=== PATIENT | female | born 1990 | race Caucasian/White ===

== ENCOUNTER 2017-02-26 13:33 | Inpatient (IN) | payer OTHER ==
[~2017-02-26] VITALS: Ht 157.4 cm; Wt 59.4 kg
--- NOTE | ~2017-02-26 | EKG ---
[place], [place] ELECTROCARDIOGRAM REPORT NAME: CHRISTIANO SOTO UNIT #: [id number] ROOM: 403 DOCTOR: WILLARD NARVAEZ MD BIRTHDATE: [birth year] DOS: 02/26/2017 ____. RATE AND RHYTHM: Normal sinus rhythm at 77 beats per minute. DE interval 127 milliseconds, QRS duration 93 milliseconds, corrected QT interval 424 milliseconds, QRS axis is 88. IMPRESSION: Normal EKG. WILLARD NARVAEZ MD CM:EKGRPT:ELECTROCARDIOGRAM REPORT [id number] WILLARD NARVAEZ MD
[~2017-02-26 13:33] MED LIST: BACTRIM DS 8001 TA1 PO; CIPROFLOXACIN500 MG PO; FLAGYL500 MG PO; MACROBID100 M1 PO; MOTRIN800 MG PO; NKHM; PERCOCET 325 MG1 TA2 PO; PRENATAL1 TA2 PO; PYRIDIUM100 MG PO; PYRIDIUM200 MG PO; SEPTRA DS 800 M1 TAB PO; TORADOL10 MG PO; ZITHROMAX Z PA250 MG PO
[2017-02-26 13:45] VITALS: BP 140/62
[2017-02-26] MEDS ORDERED: SUBOXONE 8 MG-1 EACH SL (13:47)
[2017-02-26] MEDS ORDERED: LEVONORGESTREL PO (13:47)
[2017-02-26 14:12] LABS: BILIRUBIN NEGATIVE (NEGATIVE); BLOOD NEGATIVE (NEGATIVE); CLARITY SL CLOUDY (CLEAR); COLOR YELLOW (YELLOW); GLUCOSE NEGATIVE (NEGATIVE); KETONE NEGATIVE (NEGATIVE); LEUKO ESTERASE NEGATIVE (NEGATIVE); NITRITE POSITIVE (NEGATIVE); PROTEIN NEGATIVE (NEGATIVE); SPECIFIC GRAVITY >= 1.030 (1.005-1.030); UROBILINOGEN 0.2 E.U./dl (0.2-1.0)
[2017-02-26 14:14] LABS: URINE AMPHETAMINES < 1000 (1000ng/ml); URINE BARBITURATES < 200 (200ng/ml); URINE COCAINE > 300 (300ng/ml)
[2017-02-26 14:24] LABS: BACTERIA 3+; RBC 0-2 rbc/hpf (0-2); URINE REFLEX COMMENT YES (NO)
[2017-02-26 14:39] LABS: BASO % 0.6 % (0.0-1.0); EOS # 0.2 10*3/uL (0.0-0.4); HEMATOCRIT 40.2 % (37.0-47.0); HEMOGLOBIN 13.6 g/dl (12.0-16.0); LYMPH # 2.4 10*3/uL (1.3-4.4); LYMPH % 44.5 % (27.0-41.0); MEAN CELL VOLUME 89.7 fl (81.0-99.0); MEAN CORPUSCULAR HGB 30.4 pg (27.0-31.0); MEAN CORPUSCULAR HGB CONC 33.8 g/dl (33.0-37.0); MEAN PLATELET VOLUME 10.8 fl (9.6-12.3); MONO # 0.3 10*3/uL (0.1-1.0); MONO % 5.1 % (3.0-9.0); NEUT # 2.5 10*3/uL (2.3-7.9); NEUT % 46.6 % (47.0-73.0); PLATELET COUNT AUTOMATED 199 10*3/uL (130-400); RED BLOOD COUNT 4.48 10*6/uL (4.10-5.10); WHITE BLOOD COUNT 5.3 10*3/uL (4.8-10.8)
[2017-02-26 14:54] LABS: ALBUMIN 3.9 gm/dl (3.1-4.5); ALKALINE PHOSPHATASE 62 U/L (45-117); BILIRUBIN, TOTAL 0.3 mg/dl (0.2-1.0); BUN 8 mg/dl (7-24); CARBON DIOXIDE 25 mmol/L (21-32); CHLORIDE 107 mmol/L (98-107); EST GLOM FILT AFRICAN AMERICAN > 60 ml/min; GLUCOSE 95 mg/dL (65-99); POTASSIUM 3.7 mmol/L (3.5-5.1); SGOT/AST 18 IU/L (3-35); SGPT/ALT 24 U/L (12-78); SODIUM 140 mmol/L (136-145); TOTAL PROTEIN 7.6 gm/dL (6.4-8.2)
[2017-02-26 16:00] VITALS: BP 102/69
[2017-02-26 20:00] VITALS: BP 104/55
[2017-02-27] VITALS: BP 105/61
[2017-02-27 04:00] VITALS: BP 93/50
[2017-02-27 08:00] VITALS: BP 108/60
[2017-02-27 12:00] VITALS: BP 119/64
[2017-02-27 16:00] VITALS: BP 101/60
[2017-02-27 20:00] VITALS: BP 131/64
[2017-02-28] VITALS: BP 109/72
[2017-02-28 08:00] VITALS: BP 116/54
[2017-02-28 12:00] VITALS: BP 107/50
[2017-02-28] MEDS ORDERED: SEPTRA DS 800 M1 TAB PO (12:54)
[2017-02-28] MEDS ORDERED: ROPINIROLE HYD0.5 MG PO (12:54)
[2017-02-28] MEDS ORDERED: ZOFRAN 4 MG ED2 TAB PO (12:54)
[2017-02-28] MEDS ORDERED: ATARAX,VISTARIL50 MG PO (12:54)
[2017-02-28 16:00] VITALS: BP 113/62
[2017-02-28 20:00] VITALS: BP 116/80
[2017-03-01] VITALS: BP 100/57
[2017-03-01 08:00] VITALS: BP 106/64
== END 2017-03-01 11:06 | disposition home or self-care (01) | DRG 897 ==
LOC: ED 13:33 → 4E 14:11 → EDHOLD 14:11 → 4E 14:51
PROVIDERS: Nurse Practitioner Family
DX: F11.23 Opioid dependence with withdrawal (principal); N39.0 Urinary tract infection, site not specified; F14.10 Cocaine abuse, uncomplicated; F17.210 Nicotine dependence, cigarettes, uncomplicated; F32.9 Major depressive disorder, single episode, unspecified; F41.9 Anxiety disorder, unspecified; G25.81 Restless legs syndrome; B96.20 Unspecified Escherichia coli [E. coli] as the cause of diseases classified elsewhere; Z71.6 Tobacco abuse counseling; Z79.899 Other long term (current) drug therapy

== ENCOUNTER 2017-06-30 04:13 | Inpatient (IN) | payer OTHER ==
[2017-06-30] VITALS (12 sets, daily range): BP systolic 96–120; BP diastolic 54–84
[~2017-06-30] VITALS: Ht 157.5 cm; Wt 73.7 kg
--- NOTE | ~2017-06-30 | CON ---
[place], [place] REPORT OF CONSULTATION NAME: [facility]: [id number] UNIT #: [id number] ROOM: [place] DOCTOR: MARLEN WINSTON ED.D (BREANN) BIRTHDATE: [birth year] DOS: 06/30/2017 HISTORY OF PRESENT ILLNESS: The patient is a 26-year-old female referred by the hospitalist for an evaluation following a drug overdose. She apparently took 30 Xanax along with 30 Neurontin. At the present time, this patient is in the intensive care unit at [facility]. She states she is single and has 3 children. She does not have custody of her children, however. It was very difficult obtaining much history from the patient due to the fact that she was extremely lethargic due to her drug overdose and the fact that she had also received Geodon because she had become quite agitated. I am uncertain of her medications, but her diagnosis is history of cocaine abuse, depression, opioid dependence and tobacco abuse. This patient was awake and somewhat alert and oriented to person and place only. She did not actually answer many questions because she was so lethargic from the medications. She did not indicate whether she was attempting suicide or she was still suicidal and I will re-evaluate her tomorrow which is 07/01/2017. She is under emergency hold, so therefore, she will remain in the hospital until her overdose is clear along with and also once we determine whether or not she is suicidal. DIAGNOSES: 1. History of cocaine abuse. 2. History of opioid abuse. 3. History of depression. Thank you very much for this consult. MARLEN WINSTON ED.D CM:CONSTR:REPORT OF CONSULTATION 1626 06/30/17 2251 interface
--- NOTE | ~2017-06-30 | PR ---
[place], [place] PROGRESS NOTE NAME: CHRISTIANO SOTO [facility] #: [id number] UNIT #: [id number] ROOM: [facility] DOCTOR: CATRACHITO LE,MARLEN ALICEA) BIRTHDATE: [birth year] DOS: 07/01/2017 At present time, this patient adamantly denies any suicidal ideation or plan. She states she was angry at her mother and that is why she overdosed on medications. She states she does not want to do anything to kill herself. She states that she was recently discharged from [facility] where she was treated for substance abuse issues. She was then transferred to the intensive outpatient program at [facility] in [place], [place]. She does have a therapist there, Helena Cabrera. She states that she will not do anything to harm herself and plans to go home and then continue with outpatient treatment. Since she denies any suicidal ideation or plan, she can be discharged home once she is medically stable and continue to deny suicidal ideation or plan ASSESSMENT: 1. Bipolar 1 - mixed. 2. Borderline personality disorder. 3. Opioid abuse. 4. Cocaine abuse. RECOMMENDATIONS: The patient should continue to follow at [facility] intensive outpatient clinic in [place], [place]. Thank you very much for this consult. MARLEN WINSTON ED.D CM:PNTRANS [id number] MARLEN WINSTON ED (BOB).[place] 07/01/17 1424 interface
[~2017-06-30 04:13] MED LIST changes: +ATARAX,VISTARIL50 MG PO; +LEVONORGESTREL PO; +ROPINIROLE HYD0.5 MG PO; +SUBOXONE 8 MG-1 EACH SL; +ZOFRAN 4 MG ED2 TAB PO
--- NOTE | 2017-06-30 04:25 | NUR ---
POISON CONTROL NOTIFIED THEY RECOMMEND PATIENT GETS AN ASPIRIN, TYLENOL AND ALCOHOL LEVEL CHECKED, TO NOT GIVE ANY REVERSAL MEDICATION BECAUSE IT COULD SEND PATIENT INTO A WITHDRAWAL STATE AND TO DO SUPPORTIVE THERAPY. CONTINUE TO MONITOR PATIENT FOR DROWSINESS.
--- NOTE | 2017-06-30 04:30 | NUR ---
POISON CONTROL FAXED OVER INFORMATION ON MEDICATIONS AND REACTIONS.
[2017-06-30 04:42] LABS: BASO % 0.4 % (0.0-1.0); EOS # 0.2 10*3/uL (0.0-0.4); EOS % 2.6 % (1.0-4.0); HEMATOCRIT 41.8 % (37.0-47.0); HEMOGLOBIN 14.1 g/dl (12.0-16.0); LYMPH # 3.5 10*3/uL (1.3-4.4); LYMPH % 49.1 % (27.0-41.0); MEAN CELL VOLUME 91.3 fl (81.0-99.0); MEAN CORPUSCULAR HGB 30.8 pg (27.0-31.0); MEAN CORPUSCULAR HGB CONC 33.7 g/dl (33.0-37.0); MEAN PLATELET VOLUME 10.9 fl (9.6-12.3); MONO # 0.3 10*3/uL (0.1-1.0); NEUT # 3.1 10*3/uL (2.3-7.9); NEUT % 43.8 % (47.0-73.0); PLATELET COUNT AUTOMATED 169 10*3/uL (130-400); RED BLOOD COUNT 4.58 10*6/uL (4.10-5.10); RED CELL DISTRI WIDTH 13.7 % (0-14.5)
--- NOTE | 2017-06-30 04:57 | NUR ---
PATIENT CONTINUES TO LOSE CONSCIOUSNESS MID CONVERSATION, MARKED DROWSINESS. WILL CONTINUE TO CLOSELY MONITOR.
[2017-06-30 04:58] LABS: ACETAMINOPHEN (TYLENOL) < 2.0 ug/ml (10-30); ALBUMIN 3.6 gm/dl (3.1-4.5); ALKALINE PHOSPHATASE 81 U/L (45-117); BUN 10 mg/dl (7-24); CHLORIDE 106 mmol/L (98-107); CREATININE 0.81 mg/dL (0.55-1.02); POTASSIUM 3.5 mmol/L (3.5-5.1); SGOT/AST 17 IU/L (3-35); SGPT/ALT 16 U/L (12-78); SODIUM 139 mmol/L (136-145); TOTAL PROTEIN 7.5 gm/dL (6.4-8.2)
[2017-06-30 05:06] LABS: ETHYL ALCOHOL < 3.0 mg/dl (<3)
--- NOTE | 2017-06-30 05:09 | NUR ---
DR LOREDO SPOKE WITH PT. PT IS REQUESTING MORE XANAX. DR INFORMED PT SHE COULD NOT HAVE ANYMORE XANAX
[2017-06-30 05:22] LABS: BILIRUBIN NEGATIVE (NEGATIVE); BLOOD NEGATIVE (NEGATIVE); CLARITY SL CLOUDY (CLEAR); COLOR YELLOW (YELLOW); GLUCOSE NEGATIVE (NEGATIVE); KETONE NEGATIVE (NEGATIVE); LEUKO ESTERASE 1+ (NEGATIVE); NITRITE NEGATIVE (NEGATIVE); PH 6.5 (5.0-9.0); UROBILINOGEN 0.2 E.U./dl (0.2-1.0)
--- NOTE | 2017-06-30 05:23 | NUR ---
PT KEEPS BECOMING INCREASINGLY MORE "SLEEPY" OR LETHARGIC. DR LOREDO MADE AWARE. VSS. 100% O2 RA
[2017-06-30 05:31] LABS: URINE AMPHETAMINES < 1000 (1000ng/ml); URINE BARBITURATES < 200 (200ng/ml); URINE BENZODIAZEPINES > 200 (200ng/ml); URINE CANNABINOIDS (THC) < 50 (50ng/ml); URINE COCAINE < 300 (300ng/ml); URINE METHADONE < 300 (300ng/ml); URINE OPIATES < 300 (300ng/ml)
[2017-06-30 05:35] LABS: URINE PHENCYCLIDINE < 25 (25ng/ml)
[2017-06-30 05:37] LABS: EPITHELIAL CELLS 45-50
[2017-06-30 05:38] LABS: BACTERIA TRACE
--- NOTE | 2017-06-30 06:01 | NUR ---
PATIENT MARKED DROWSINESS, PATIENT OPENED EYES TO PAINFUL STIMULI, WORDS INCOMPREHENSIBLE AND SLURRED. DR. FACUNDO SANDOVAL.
--- NOTE | 2017-06-30 06:20 | NUR ---
A 26, admitted to ICCU, under the services of VERNON Jacobsen DO with a diagnosis of DRUG OVERDOSE, INTENTIONAL. Chief complaint is ANXIETY, TOOK XANAX AND NEURONTIN. Patient arrived via stretcher from ER. Monitor applied. Initial assessment completed. Vital signs taken and recorded. VERNON JACOBSEN DO notified of admission to the unit. Orders received. See assessment for past medical history, medications and allergies. Patient and/or family oriented to unit. [facility] visitation policy reviewed. Clothing/patient valuable form completed. ROBY NÚÑEZ
--- NOTE | 2017-06-30 06:26 | NUR ---
POISON CONTROL GIVEN UPDATE ON PATIENT.
--- NOTE | 2017-06-30 06:35 | NUR ---
UNABLE TO CONFIRM HOME MEDICATIONS AT THIS TIME, PT. IS DIFFICULT TO AROUSE AND FALLING BACK TO SLEEP AND SLURRING WORDS. RADHA REEVES RN
--- NOTE | 2017-06-30 07:51 | NUR ---
24 HR chart check completed.
--- NOTE | 2017-06-30 09:54 | NUR ---
JUNIOR HOOKER AND DR WINSTON BOTH CALLED IN AND STATED THAT THEY WILL BE IN TO SEE PT TODAY.
--- NOTE | 2017-06-30 10:45 | NUR ---
met with client per consult, she is midly agitated, did nto really want to talk to me, she denies that she is suicidal, she wants to leave and did take her monitors off and then security came, she tells me she attends in [facility] for drugs and alcohol. she adamently denies that she wanted to harm herself or currently wants to. i will follow to see what all the providers involved want to do.
--- NOTE | 2017-06-30 11:30 | NUR ---
PT HAS RIPPED OFF HER MONITOR AND IV OUT AND IS REFUSING TO HAVE ANY OF IT REPLACED.
--- NOTE | 2017-06-30 11:47 | NUR ---
MEDICATED WITH GEODON 10MG IM FOR ERRATIC/PSYCHOTIC BEHAVIOR THAT WAS REPORTED TO DR GORDILLO.
--- NOTE | 2017-06-30 12:18 | NUR ---
PT IS NOW RESTING PEACEFULLY. WILL ATTEMPT TO REPLACE IV AND MONITOR.
--- NOTE | 2017-06-30 22:30 | NUR ---
PT COMBATIVE AND YELLIING OUT. PT REFUSING TO CALM DOWN. DR MARTINEZ CALLED AND HERE AND NEW ORDERS RECEIVED.
[2017-07-01] VITALS: BP 122/70
--- NOTE | 2017-07-01 03:15 | NUR ---
PT C/O TOOTHACHE. DR MARTINEZ NOTIFIED AND NEW ORDER RECEIVED. MEDICATED WITH MOTRIN PER PRN ORDER.
[2017-07-01 04:00] VITALS: BP 148/95
[2017-07-01 04:05] LABS: BASO % 0.2 % (0.0-1.0); EOS # 0.3 10*3/uL (0.0-0.4); EOS % 4.1 % (1.0-4.0); HEMATOCRIT 42.1 % (37.0-47.0); HEMOGLOBIN 13.9 g/dl (12.0-16.0); LYMPH # 3.2 10*3/uL (1.3-4.4); LYMPH % 52.6 % (27.0-41.0); MEAN CELL VOLUME 92.3 fl (81.0-99.0); MEAN CORPUSCULAR HGB 30.5 pg (27.0-31.0); MONO # 0.4 10*3/uL (0.1-1.0); MONO % 5.7 % (3.0-9.0); NEUT # 2.3 10*3/uL (2.3-7.9); NEUT % 37.2 % (47.0-73.0); PLATELET COUNT AUTOMATED 171 10*3/uL (130-400); RED BLOOD COUNT 4.56 10*6/uL (4.10-5.10); RED CELL DISTRI WIDTH 13.9 % (0-14.5); WHITE BLOOD COUNT 6.1 10*3/uL (4.8-10.8)
[2017-07-01 04:15] LABS: INTERNATIONAL NORM RATIO 0.9 (2.0-3.5)
[2017-07-01 04:20] LABS: ALBUMIN 3.2 gm/dl (3.1-4.5); ALKALINE PHOSPHATASE 78 U/L (45-117); BUN 10 mg/dl (7-24); CHLORIDE 107 mmol/L (98-107); CHOLESTEROL 172 mg/dL (<200); CREATININE 0.72 mg/dL (0.55-1.02); HDL CHOLESTEROL 44 mg/dl (40-60); LDL CHOLESTEROL 57 mg/dL (9-159); PHOSPHOROUS 4.9 mg/dL (2.5-4.9); POTASSIUM 3.8 mmol/L (3.5-5.1); SGOT/AST 7 IU/L (3-35); SGPT/ALT 15 U/L (12-78); SODIUM 140 mmol/L (136-145); TOTAL PROTEIN 6.8 gm/dL (6.4-8.2); TRIGLYCERIDES 353 mg/dl (<150); VLDL CHOLESTEROL 71 mg/dL (6-40)
[2017-07-01 06:19] LABS: VITAMIN D, 25-HYDROXY 33.5 ng/mL (30-100)
[2017-07-01 08:00] VITALS: BP 119/74
--- NOTE | 2017-07-01 08:06 | NUR ---
PT SLEEPING AT THIS TIME BUT EASILY AWAKENS FOR ASSESSMENT. VITALS STABLE.
--- NOTE | 2017-07-01 10:31 | NUR ---
checked in with nursing, no dispostion yet for this client.
--- NOTE | 2017-07-01 11:51 | NUR ---
DR WINSTON IN AND SPOKE WITH PT. SHE DENIES EVER TRYING TO KILL HERSELF. AWAITNG JUNIOR HOOKER.
[2017-07-01 12:00] VITALS: BP 125/75
[2017-07-01] MEDS ORDERED: PRAVACHOL40 MG PO (12:51)
--- NOTE | 2017-07-01 13:56 | NUR ---
Discharge instructions reviewed with patient/family. Patient receptive and verbalizes understanding. Follow-up care arranged. Written instructions given to patient/family. BRITTANIE ANGELES
== END 2017-07-01 16:43 | disposition home or self-care (01) | DRG 917 ==
LOC: ED 04:13 → EDHOLD 05:53 → ICCU 05:53
PROVIDERS: Emergency Medicine Emergency Medical Services; Hospitalist; ADMIT Internal Medicine
DX: T42.4X2A Poisoning by benzodiazepines, intentional self-harm, initial encounter (principal); G93.41 Metabolic encephalopathy; E44.0 Moderate protein-calorie malnutrition; F31.60 Bipolar disorder, current episode mixed, unspecified; F11.288 Opioid dependence with other opioid-induced disorder; F60.3 Borderline personality disorder; T14.91 Suicide attempt; T42.6X2A Poisoning by other antiepileptic and sedative-hypnotic drugs, intentional self-harm, initial encounter; F41.9 Anxiety disorder, unspecified; F14.10 Cocaine abuse, uncomplicated; E78.1 Pure hyperglyceridemia; Z79.899 Other long term (current) drug therapy; Z72.0 Tobacco use; Y92.89 Other specified places as the place of occurrence of the external cause; Z87.440 Personal history of urinary (tract) infections

== ENCOUNTER 2017-07-11 11:06 | Emergency (ER) | payer OTHER ==
[~2017-07-11] VITALS: Ht 157.4 cm; Wt 71.7 kg
[~2017-07-11 11:06] MED LIST changes: +PRAVACHOL40 MG PO
[2017-07-11 12:10] LABS: BASO % 0.2 % (0.0-1.0); EOS % 0.2 % (1.0-4.0); HEMATOCRIT 38.7 % (37.0-47.0); HEMOGLOBIN 13.3 g/dl (12.0-16.0); LYMPH # 0.5 10*3/uL (1.3-4.4); MEAN CELL VOLUME 91.5 fl (81.0-99.0); MEAN CORPUSCULAR HGB 31.4 pg (27.0-31.0); MEAN CORPUSCULAR HGB CONC 34.4 g/dl (33.0-37.0); MEAN PLATELET VOLUME 11.1 fl (9.6-12.3); MONO # 0.2 10*3/uL (0.1-1.0); MONO % 4.1 % (3.0-9.0); NEUT # 4.6 10*3/uL (2.3-7.9); NEUT % 86.3 % (47.0-73.0); PLATELET COUNT AUTOMATED 109 10*3/uL (130-400); RED BLOOD COUNT 4.23 10*6/uL (4.10-5.10); RED CELL DISTRI WIDTH 14.1 % (0-14.5); WHITE BLOOD COUNT 5.4 10*3/uL (4.8-10.8)
[2017-07-11 12:22] LABS: BUN 10 mg/dl (7-24); CHLORIDE 100 mmol/L (98-107); CREATININE 0.73 mg/dL (0.55-1.02); SODIUM 133 mmol/L (136-145)
[2017-07-11 12:27] LABS: BETA-HCG, QUANT < 1.0 mIU/mL (1-3)
[2017-07-11 13:49] LABS: BILIRUBIN 1+ (NEGATIVE); BLOOD NEGATIVE (NEGATIVE); CLARITY SL CLOUDY (CLEAR); COLOR YELLOW (YELLOW); GLUCOSE NEGATIVE (NEGATIVE); KETONE 3+ (NEGATIVE); LEUKO ESTERASE 3+ (NEGATIVE); NITRITE NEGATIVE (NEGATIVE); SPECIFIC GRAVITY 1.015 (1.005-1.030); UROBILINOGEN 0.2 E.U./dl (0.2-1.0)
[2017-07-11 13:58] LABS: URINE AMPHETAMINES < 1000 (1000ng/ml); URINE BARBITURATES < 200 (200ng/ml); URINE BENZODIAZEPINES < 200 (200ng/ml); URINE CANNABINOIDS (THC) > 50 (50ng/ml); URINE COCAINE > 300 (300ng/ml); URINE METHADONE < 300 (300ng/ml); URINE OPIATES < 300 (300ng/ml)
[2017-07-11 14:01] LABS: URINE PHENCYCLIDINE < 25 (25ng/ml)
[2017-07-11 14:02] LABS: BACTERIA 3+; EPITHELIAL CELLS 21-30; RBC 0-2 rbc/hpf (0-2); WBC 31-40 wbc/hpf (0-5)
[2017-07-12 07:08] VITALS: BP 120/73
[2017-07-12] MEDS ORDERED: VISTARIL50 MG PO (11:00)
== END 2017-07-12 13:04 | disposition home or self-care (01) ==
LOC: ED 11:06
PROVIDERS: Emergency Medicine
DX: F41.8 Other specified anxiety disorders (principal); N39.0 Urinary tract infection, site not specified; F19.10 Other psychoactive substance abuse, uncomplicated; F14.10 Cocaine abuse, uncomplicated; F17.200 Nicotine dependence, unspecified, uncomplicated; Z79.899 Other long term (current) drug therapy